=== PATIENT | female | born 1965 | race Caucasian/White ===

== ENCOUNTER 2020-09-18 16:37 | Inpatient (IN) ==
[2020-09-18 17:49] LABS: ABS Basophils 0.1 10^3/ul (0-0.2); ABS Eosinophils 0.6 10^3/ul (0-0.6); ABS Lymphocytes 1.7 10^3/ul (1.0-4.8); ABS Monocytes 0.6 10^3/ul (0-0.8); ABS Neutrophils 7.4 10^3/ul (1.5-7.7); Eosinophil % 5.7 %; Hematocrit 26 % (35-47); Hemoglobin 8.6 g/dL (12.0-16.0); Lymphocyte % 16.8 %; Mean Corpuscular HGB Conc 34 g/dL (31-36); Mean Corpuscular Hemoglobin 33 pg (27-31); Mean Corpuscular Volume 98 fL (80-97); Mean Platelet Volume 7.9 fL (7.4-10.4); Platelet Count 252 10^3/uL (150-450); Red Blood Count 2.63 10^6 /uL (3.70-4.87); Red Cell Distribution Width 15 % (10-15); White Blood Count 10.3 10^3/uL (3.5-10.8)
[2020-09-18 18:06] LABS: Albumin 3.7 g/dL (3.2-5.2); Albumin/Globulin Ratio 1.2 (1-3); Calcium 8.7 mg/dL (8.6-10.3); EGFR African American 73.8 (>60); Globulin 3.2 g/dL (2-4); Phosphorus 3.5 mg/dL (2.5-5.0); Potassium 4.1 mmol/L (3.5-5.0); Total Bilirubin 0.4 mg/dL (0.2-1.0); Total Protein 6.9 g/dL (6.4-8.9)
[2020-09-18] MEDS ORDERED: Ondansetron 4 mg VIAL 2 MG/ML 2 ml VIAL IV PRN (19:35)
[2020-09-18] MEDS ORDERED: Albuterol 2.5mg/3 ml (0.083%) NEB.SOLN INH PRN (19:37)
[2020-09-18] MEDS ORDERED: Benzocaine (DENTAL) 10% TOP.GEL TOPICAL PRN (19:37)
[2020-09-18] MEDS: Nicotine PATCH 14 MG/24 HR PATCH TRANSDERM SCH (20:39)
[2020-09-19] MEDS ORDERED: Haloperidol 5 mg/ml SDV IV/IM 5 MG/ML AMP IV SLOW PU ONE (00:22)
[2020-09-19] MEDS ORDERED: Haloperidol 5 mg/ml SDV IV/IM 5 MG/ML AMP IM ONE (00:28)
[2020-09-19] MEDS ORDERED: Lorazepam PYXIS KEY PRN (00:53)
[2020-09-19] MEDS ORDERED: LORazepam 2 mg VIAL 1 ml IM PRN (00:53)
[2020-09-19] MEDS: Chlorhexidine MOUTHWASH 0.12% 15 ML UDC SWISH SPIT SCH ×3 (09:57→20:08)
[2020-09-19] MEDS: Insulin GLARGINE 100 un/ml 10 ml VIAL SUBCUT SCH ×2 (09:57→20:07)
[2020-09-19] MEDS: Latanoprost 0.005% 2.5 ml BTL LEFT EYE SCH ×2 (09:58→20:08)
[2020-09-19] MEDS ORDERED: Ondansetron ODT 4 mg TAB 4 MG TAB SL PRN (10:43)
[2020-09-19] MEDS: Nicotine PATCH 14 MG/24 HR PATCH TRANSDERM SCH (15:07)
[2020-09-19] MEDS: Enoxaparin 40 MG/0.4 ML SYR SUBCUT SCH (20:07)
[2020-09-20] MEDS: Nicotine PATCH 14 MG/24 HR PATCH TRANSDERM SCH (10:00)
[2020-09-20] MEDS: Chlorhexidine MOUTHWASH 0.12% 15 ML UDC SWISH SPIT SCH ×2 (12:57→23:49)
[2020-09-20] MEDS ORDERED: Lactated Ringers 1000 ml BAG 1,000 ML IV ONE ×2 (18:00→18:48)
[2020-09-20 18:01] LABS: Glucose Confirmatory 448 mg/dL (70-100)
[2020-09-20] MEDS ORDERED: Al Hydrox/Mg Hydrox/Simet LIQ 30 ML UDC PO ONE (21:49)
[2020-09-20] MEDS: Enoxaparin 40 MG/0.4 ML SYR SUBCUT SCH (22:54)
[2020-09-20] MEDS: Insulin GLARGINE 100 un/ml 10 ml VIAL SUBCUT SCH (22:54)
[2020-09-20] MEDS: Latanoprost 0.005% 2.5 ml BTL LEFT EYE SCH (23:50)
[2020-09-21] MEDS ORDERED: Zosyn per Pharmacy NOTE FOLLOW UP SCH (04:00)
[2020-09-21] MEDS ORDERED: Lactated Ringers 1000 ml BAG 1,000 ML IV ONE (04:06)
[2020-09-21] MEDS: Piperacillin/Tazobac ADVAN 3.375 GM in NS 0.9% 100 ml BAG 100 ML IV ONE ×2 (04:07→05:47)
[2020-09-21 05:15] LABS: ABS Basophils 0.1 10^3/ul (0-0.2); ABS Eosinophils 0.7 10^3/ul (0-0.6); ABS Monocytes 0.6 10^3/ul (0-0.8); ABS Neutrophils 6.1 10^3/ul (1.5-7.7); Eosinophil % 7.6 %; Hematocrit 27 % (35-47); Hemoglobin 9.2 g/dL (12.0-16.0); Lymphocyte % 21.4 %; Mean Corpuscular HGB Conc 34 g/dL (31-36); Mean Corpuscular Hemoglobin 33 pg (27-31); Mean Corpuscular Volume 98 fL (80-97); Mean Platelet Volume 7.3 fL (7.4-10.4); Nucleated Red Blood Cells % 0.1; Platelet Count 284 10^3/uL (150-450); Red Blood Count 2.76 10^6 /uL (3.70-4.87); Red Cell Distribution Width 15 % (10-15); White Blood Count 9.5 10^3/uL (3.5-10.8)
[2020-09-21] MEDS ORDERED: Pantoprazole VIAL 40 MG VIAL IV ONE (05:15)
[2020-09-21 05:27] LABS: Activated Partial Thrombo Time 27.2 seconds (26.0-38.0); INR 1.12 (0.86-1.15)
[2020-09-21] MEDS ORDERED: Pantoprazole 80 mg in NS BAG 80 MG/250 ML BAG IV SCH (05:30)
[2020-09-21 05:33] LABS: Albumin 3.3 g/dL (3.2-5.2); Albumin/Globulin Ratio 1.1 (1-3); Calcium 8.7 mg/dL (8.6-10.3); EGFR African American 91.1 (>60); EGFR Non-African American 75.3 (>60); Globulin 3.1 g/dL (2-4); Magnesium 1.5 mg/dL (1.9-2.7); Phosphorus 3.2 mg/dL (2.5-5.0); Potassium 3.9 mmol/L (3.5-5.0); Total Bilirubin 0.3 mg/dL (0.2-1.0); Total Protein 6.4 g/dL (6.4-8.9)
[2020-09-21] MEDS: Morphine 2 MG/ML SYRINGE IV PRN (05:33)
[2020-09-21] MEDS: Dextrose 50% Syringe 50 ml 25 GM/50 ML SYRINGE IV PUSH PRN ×2 (05:56→19:35)
[2020-09-21] MEDS ORDERED: Magnesium Sulfate 2 gm BAG 2 GM/50 ML BAG IVPB ONE (06:00)
[2020-09-21] MEDS ORDERED: D5LR 1000 ml BAG 1,000 ML IV SCH (06:00)
[2020-09-21 06:09] LABS: C Reactive Protein 12.3 mg/L (<8.01)
[2020-09-21 06:29] LABS: Urine Appearance Turbid; Urine Bilirubin Negative (Negative); Urine Blood Negative (Negative); Urine Color Yellow; Urine Glucose 1+(50 mg/dL) (Negative); Urine Ketones Negative (Negative); Urine Nitrite Negative (Negative); Urine Protein Negative (Negative); Urine Specific Gravity 1.011 (1.002-1.030); Urine Urobilinogen Negative (Negative)
[2020-09-21 06:37] LABS: Urine Bacteria 2+ (Absent); Urine Red Blood Cell Trace(0-2/hpf) (Absent); Urine White Blood Cell 2+(11-20/hpf) (Absent); Urine Yeast Present (Absent)
[2020-09-21] MEDS: ZOSYN 3.375 GM Q8H per EXTENDED INFUSION IV SCH ×3 (08:18→23:13)
[2020-09-21] MEDS ORDERED: Iodixanol (CONTRAST) 320 MG/ML 100 ML SDV IV ONE (11:09)
[2020-09-21] MEDS ORDERED: NS 0.9% 100 ml BAG 100 ML ONE (15:44)
[2020-09-21] MEDS ORDERED: Sodium Chloride CONC. 4 MEQ/ML 77 MEQ in D10W 1000 ml BAG 1,000 ML IV SCH (19:00)
[2020-09-21] MEDS: Pantoprazole VIAL 40 MG VIAL IV SCH (20:54)
[2020-09-21] MEDS: Latanoprost 0.005% 2.5 ml BTL LEFT EYE SCH (20:54)
[2020-09-21] MEDS: Enoxaparin 40 MG/0.4 ML SYR SUBCUT SCH (20:55)
[2020-09-22] MEDS ORDERED: Lactated Ringers 1000 ml BAG 500 ML IV ONE (02:06)
[2020-09-22 02:39] LABS: ABS Eosinophils 0.7 10^3/ul (0-0.6); ABS Lymphocytes 1.4 10^3/ul (1.0-4.8); ABS Monocytes 0.5 10^3/ul (0-0.8); ABS Neutrophils 7.4 10^3/ul (1.5-7.7); Hematocrit 26 % (35-47); Hemoglobin 8.6 g/dL (12.0-16.0); Lymphocyte % 14.3 %; Mean Corpuscular HGB Conc 33 g/dL (31-36); Mean Corpuscular Hemoglobin 33 pg (27-31); Mean Corpuscular Volume 98 fL (80-97); Mean Platelet Volume 7.4 fL (7.4-10.4); Platelet Count 265 10^3/uL (150-450); Red Blood Count 2.62 10^6 /uL (3.70-4.87); Red Cell Distribution Width 15 % (10-15)
[2020-09-22 02:54] LABS: Calcium 8.1 mg/dL (8.6-10.3); Magnesium 1.8 mg/dL (1.9-2.7); Potassium 3.8 mmol/L (3.5-5.0)
[2020-09-22 03:00] LABS: EGFR African American 120.1 (>60); EGFR Non-African American 99.2 (>60)
[2020-09-22] MEDS: Dextrose 50% Syringe 50 ml 25 GM/50 ML SYRINGE IV PUSH PRN (03:42)
[2020-09-22] MEDS: Sodium Chloride CONC. 4 MEQ/ML 77 MEQ in D10W 1000 ml BAG 1,000 ML IV SCH ×4 (03:48→15:40)
[2020-09-22] MEDS ORDERED: Propofol 10 mg/ml 100 ML BTL 100 ML IV SCH (08:00)
[2020-09-22] MEDS: ZOSYN 3.375 GM Q8H per EXTENDED INFUSION IV SCH ×2 (09:18→15:57)
[2020-09-22] MEDS: Pantoprazole VIAL 40 MG VIAL IV SCH ×2 (09:18→23:54)
[2020-09-22] MEDS: Morphine 2 MG/ML SYRINGE IV PRN ×3 (09:58→17:12)
[2020-09-22] MEDS: Ondansetron 4 mg VIAL 2 MG/ML 2 ml VIAL IV PRN (12:14)
[2020-09-22] MEDS ORDERED: WATER CENTR SCH (17:00)
[2020-09-22] MEDS ORDERED: TPN CENTR SCH (17:00)
[2020-09-22] MEDS ORDERED: [UNRECOGNIZED DRUG - OTHER] CENTR SCH (17:00)
[2020-09-22] MEDS ORDERED: DEXTROSE CENTR SCH (17:00)
[2020-09-22] MEDS ORDERED: AMINO ACID INFUSION CENTR SCH (17:00)
[2020-09-22] MEDS: Enoxaparin 40 MG/0.4 ML SYR SUBCUT SCH (23:50)
[2020-09-23] MEDS: Dextrose 50% Syringe 50 ml 25 GM/50 ML SYRINGE IV PUSH PRN (00:21)
[2020-09-23] MEDS: ZOSYN 3.375 GM Q8H per EXTENDED INFUSION IV SCH ×3 (00:26→17:36)
[2020-09-23] MEDS: Latanoprost 0.005% 2.5 ml BTL LEFT EYE SCH ×2 (00:32→22:53)
[2020-09-23 06:11] LABS: ABS Eosinophils 0.9 10^3/ul (0-0.6); ABS Monocytes 0.5 10^3/ul (0-0.8); ABS Neutrophils 6.3 10^3/ul (1.5-7.7); Eosinophil % 9.7 %; Hematocrit 25 % (35-47); Hemoglobin 8.4 g/dL (12.0-16.0); Lymphocyte % 20.1 %; Mean Corpuscular HGB Conc 34 g/dL (31-36); Mean Corpuscular Hemoglobin 33 pg (27-31); Mean Corpuscular Volume 97 fL (80-97); Mean Platelet Volume 7.4 fL (7.4-10.4); Platelet Count 264 10^3/uL (150-450); Red Blood Count 2.54 10^6 /uL (3.70-4.87); Red Cell Distribution Width 15 % (10-15); White Blood Count 9.7 10^3/uL (3.5-10.8)
[2020-09-23 06:28] LABS: Albumin 2.8 g/dL (3.2-5.2); Calcium 8.2 mg/dL (8.6-10.3); EGFR African American 104.6 (>60); EGFR Non-African American 86.4 (>60); Globulin 2.9 g/dL (2-4); Magnesium 1.7 mg/dL (1.9-2.7); Phosphorus 3.6 mg/dL (2.5-5.0); Potassium 4.2 mmol/L (3.5-5.0); Total Bilirubin 0.4 mg/dL (0.2-1.0); Total Protein 5.7 g/dL (6.4-8.9)
[2020-09-23] MEDS: Pantoprazole VIAL 40 MG VIAL IV SCH ×2 (08:47→22:51)
[2020-09-23] MEDS ORDERED: TPN CENTRAL STANDARD BASE A CENTR SCH (17:00)
[2020-09-23] MEDS: Enoxaparin 40 MG/0.4 ML SYR SUBCUT SCH (22:51)
[2020-09-24] MEDS: ZOSYN 3.375 GM Q8H per EXTENDED INFUSION IV SCH ×3 (02:32→15:38)
[2020-09-24 07:06] LABS: ABS Basophils 0.1 10^3/ul (0-0.2); ABS Eosinophils 1.1 10^3/ul (0-0.6); ABS Lymphocytes 2.2 10^3/ul (1.0-4.8); ABS Monocytes 0.6 10^3/ul (0-0.8); ABS Neutrophils 6.5 10^3/ul (1.5-7.7); Eosinophil % 10.8 %; Hematocrit 24 % (35-47); Hemoglobin 8.1 g/dL (12.0-16.0); Lymphocyte % 21.3 %; Mean Corpuscular HGB Conc 34 g/dL (31-36); Mean Corpuscular Hemoglobin 33 pg (27-31); Mean Corpuscular Volume 97 fL (80-97); Mean Platelet Volume 7.6 fL (7.4-10.4); Platelet Count 241 10^3/uL (150-450); Red Blood Count 2.44 10^6 /uL (3.70-4.87); Red Cell Distribution Width 15 % (10-15); White Blood Count 10.6 10^3/uL (3.5-10.8)
[2020-09-24 07:19] LABS: Albumin 2.9 g/dL (3.2-5.2); Calcium 8.4 mg/dL (8.6-10.3); EGFR African American 106.3 (>60); EGFR Non-African American 87.9 (>60); Globulin 2.8 g/dL (2-4); Magnesium 1.4 mg/dL (1.9-2.7); Phosphorus 3.7 mg/dL (2.5-5.0); Potassium 4.2 mmol/L (3.5-5.0); Total Bilirubin 0.4 mg/dL (0.2-1.0); Total Protein 5.7 g/dL (6.4-8.9)
[2020-09-24] MEDS: Pantoprazole VIAL 40 MG VIAL IV SCH ×2 (07:55→20:04)
[2020-09-24] MEDS ORDERED: Magnesium Sulfate IV 3 GM in NS 0.9% 100 ml BAG 100 ML IVPB ONE (08:28)
[2020-09-24] MEDS: Morphine 2 MG/ML SYRINGE IV PRN ×4 (09:40→22:36)
[2020-09-24] MEDS: Ondansetron 4 mg VIAL 2 MG/ML 2 ml VIAL IV PRN (15:44)
[2020-09-24] MEDS ORDERED: TPN CENTRAL STANDARD BASE A CENTR SCH (17:00)
[2020-09-24 19:31] LABS: Glucose Confirmatory 773 mg/dL (70-100)
[2020-09-24] MEDS: Enoxaparin 40 MG/0.4 ML SYR SUBCUT SCH (20:04)
[2020-09-24] MEDS: Latanoprost 0.005% 2.5 ml BTL LEFT EYE SCH (20:05)
[2020-09-24] MEDS ORDERED: Dextrose 50% Syringe 50 ml 25 GM/50 ML SYRINGE IV PUSH PRN (20:33)
[2020-09-24] MEDS: Insulin GLARGINE 100 un/ml 10 ml VIAL SUBCUT SCH (20:44)
[2020-09-25] MEDS: ZOSYN 3.375 GM Q8H per EXTENDED INFUSION IV SCH ×3 (00:35→16:20)
[2020-09-25] MEDS: Morphine 2 MG/ML SYRINGE IV PRN ×3 (03:02→19:33)
[2020-09-25 06:05] LABS: ABS Eosinophils 1.4 10^3/ul (0-0.6); ABS Lymphocytes 1.8 10^3/ul (1.0-4.8); ABS Monocytes 0.5 10^3/ul (0-0.8); ABS Neutrophils 6.4 10^3/ul (1.5-7.7); Hematocrit 24 % (35-47); Lymphocyte % 17.9 %; Mean Corpuscular HGB Conc 33 g/dL (31-36); Mean Corpuscular Hemoglobin 32 pg (27-31); Mean Corpuscular Volume 97 fL (80-97); Mean Platelet Volume 7.5 fL (7.4-10.4); Platelet Count 249 10^3/uL (150-450); Red Blood Count 2.49 10^6 /uL (3.70-4.87); Red Cell Distribution Width 14 % (10-15); White Blood Count 10.1 10^3/uL (3.5-10.8)
[2020-09-25 06:23] LABS: Albumin 2.9 g/dL (3.2-5.2); Calcium 8.5 mg/dL (8.6-10.3); EGFR African American 106.3 (>60); EGFR Non-African American 87.9 (>60); Globulin 2.8 g/dL (2-4); Magnesium 1.7 mg/dL (1.9-2.7); Phosphorus 3.3 mg/dL (2.5-5.0); Potassium 4.1 mmol/L (3.5-5.0); Total Bilirubin 0.3 mg/dL (0.2-1.0); Total Protein 5.7 g/dL (6.4-8.9)
[2020-09-25] MEDS: Pantoprazole VIAL 40 MG VIAL IV SCH ×2 (09:16→21:41)
[2020-09-25] MEDS: Ondansetron 4 mg VIAL 2 MG/ML 2 ml VIAL IV PRN (16:30)
[2020-09-25] MEDS ORDERED: [UNRECOGNIZED DRUG - NUTRITION] CENT\\PICC SCH (17:00)
[2020-09-25] MEDS: Insulin GLARGINE 100 un/ml 10 ml VIAL SUBCUT SCH (21:48)
[2020-09-25] MEDS: Latanoprost 0.005% 2.5 ml BTL LEFT EYE SCH (21:49)
[2020-09-25] MEDS: Enoxaparin 40 MG/0.4 ML SYR SUBCUT SCH (21:50)
[2020-09-25 22:18] LABS: Glucose Confirmatory 409 mg/dL (70-100)
[2020-09-25] MEDS ORDERED: Dextrose 50% Syringe 50 ml 25 GM/50 ML SYRINGE IV PUSH PRN (22:26)
[2020-09-26] MEDS: Morphine 2 MG/ML SYRINGE IV PRN ×2 (01:02→08:17)
[2020-09-26 05:42] LABS: ABS Eosinophils 1.1 10^3/ul (0-0.6); ABS Lymphocytes 1.6 10^3/ul (1.0-4.8); ABS Monocytes 0.4 10^3/ul (0-0.8); ABS Neutrophils 3.9 10^3/ul (1.5-7.7); Eosinophil % 15.7 %; Hematocrit 25 % (35-47); Hemoglobin 8.5 g/dL (12.0-16.0); Lymphocyte % 23.1 %; Mean Corpuscular HGB Conc 35 g/dL (31-36); Mean Corpuscular Hemoglobin 33 pg (27-31); Mean Corpuscular Volume 95 fL (80-97); Mean Platelet Volume 7.7 fL (7.4-10.4); Platelet Count 233 10^3/uL (150-450); Red Blood Count 2.57 10^6 /uL (3.70-4.87); Red Cell Distribution Width 14 % (10-15); White Blood Count 6.9 10^3/uL (3.5-10.8)
[2020-09-26 05:58] LABS: Calcium 8.2 mg/dL (8.6-10.3); EGFR African American 104.6 (>60); EGFR Non-African American 86.4 (>60); Magnesium 1.5 mg/dL (1.9-2.7); Phosphorus 3.3 mg/dL (2.5-5.0); Potassium 4.5 mmol/L (3.5-5.0)
[2020-09-26] MEDS: Pantoprazole VIAL 40 MG VIAL IV SCH ×2 (08:16→21:11)
[2020-09-26] MEDS: Ondansetron 4 mg VIAL 2 MG/ML 2 ml VIAL IV PRN ×2 (08:16→15:19)
[2020-09-26] MEDS ORDERED: Magnesium Sulfate IV 3 GM in NS 0.9% 100 ml BAG 100 ML IVPB ONE (10:42)
[2020-09-26] MEDS ORDERED: Metoclopramide 5 MG/ML VIAL (10 mg) IV SLOW PU PRN (11:50)
[2020-09-26] MEDS: Pancrelipase 5,000 units CAP PO SCH ×2 (11:59→17:35)
[2020-09-26 13:35] LABS: % Iron Saturation 33 % (15-55); Iron 61 ug/dL (50-212); Total Iron Binding Capacity 185 mcg/dL (250-450); Transferrin 132 mg/dL (203-362); Unsaturated Iron Binding < 170 ug/dL
[2020-09-26 13:50] LABS: TSH Ultra Thyroid Stim Horm 12.28 mcIU/mL (0.34-5.60)
[2020-09-26 13:59] LABS: Ferritin 160.4 ng/mL (11-307)
[2020-09-26 14:02] LABS: Folate 15.48 ng/mL (5.90-24.80); Vitamin B12 669 pg/mL (180-914)
[2020-09-26 14:37] LABS: T4, Total 11.57 mcg/dL (6.09-12.23)
[2020-09-26 14:47] LABS: Total T3 104 ng/dL (87-178)
[2020-09-26 15:32] LABS: Vitamin D Total 25(OH) < 7.0 ng/mL (20-50)
[2020-09-26] MEDS: [UNRECOGNIZED DRUG - NUTRITION] CENT\\PICC SCH (17:35)
[2020-09-26] MEDS: Insulin GLARGINE 100 un/ml 10 ml VIAL SUBCUT SCH (21:10)
[2020-09-26] MEDS: Latanoprost 0.005% 2.5 ml BTL LEFT EYE SCH (21:11)
[2020-09-26] MEDS: Enoxaparin 40 MG/0.4 ML SYR SUBCUT SCH (21:12)
[2020-09-27 06:05] LABS: ABS Basophils 0.1 10^3/ul (0-0.2); ABS Eosinophils 0.8 10^3/ul (0-0.6); ABS Lymphocytes 1.9 10^3/ul (1.0-4.8); ABS Monocytes 0.3 10^3/ul (0-0.8); ABS Neutrophils 3.3 10^3/ul (1.5-7.7); Eosinophil % 12.4 %; Hematocrit 26 % (35-47); Hemoglobin 8.9 g/dL (12.0-16.0); Lymphocyte % 29.3 %; Mean Corpuscular HGB Conc 35 g/dL (31-36); Mean Corpuscular Hemoglobin 33 pg (27-31); Mean Corpuscular Volume 95 fL (80-97); Mean Platelet Volume 7.8 fL (7.4-10.4); Platelet Count 259 10^3/uL (150-450); Red Cell Distribution Width 14 % (10-15); White Blood Count 6.4 10^3/uL (3.5-10.8)
[2020-09-27 06:11] LABS: INR 1.06 (0.86-1.15)
[2020-09-27 06:25] LABS: Potassium 4.6 mmol/L (3.5-5.0)
[2020-09-27 06:26] LABS: Albumin 3.2 g/dL (3.2-5.2); Albumin/Globulin Ratio 1.1 (1-3); Calcium 8.3 mg/dL (8.6-10.3); EGFR African American 117.9 (>60); EGFR Non-African American 97.4 (>60); Magnesium 1.9 mg/dL (1.9-2.7); Phosphorus 3.9 mg/dL (2.5-5.0); Total Bilirubin 0.3 mg/dL (0.2-1.0); Total Protein 6.2 g/dL (6.4-8.9)
[2020-09-27] MEDS: Pancrelipase 5,000 units CAP PO SCH ×3 (07:39→17:33)
[2020-09-27] MEDS ORDERED: Insulin GLARGINE 100 un/ml 10 ml VIAL SUBCUT ONE (08:16)
[2020-09-27] MEDS: Pantoprazole VIAL 40 MG VIAL IV SCH ×2 (09:08→20:36)
[2020-09-27] MEDS: Cholecalciferol (VIT D3) 1,000 unit TAB PO SCH (09:08)
[2020-09-27] MEDS: [UNRECOGNIZED DRUG - NUTRITION] CENT\\PICC SCH (17:34)
[2020-09-27] MEDS: Enoxaparin 40 MG/0.4 ML SYR SUBCUT SCH (20:36)
[2020-09-27] MEDS: Latanoprost 0.005% 2.5 ml BTL LEFT EYE SCH (20:38)
[2020-09-27] MEDS: Insulin GLARGINE 100 un/ml 10 ml VIAL SUBCUT SCH (22:01)
[2020-09-28 06:31] LABS: ABS Basophils 0.1 10^3/ul (0-0.2); ABS Eosinophils 0.8 10^3/ul (0-0.6); ABS Lymphocytes 1.8 10^3/ul (1.0-4.8); ABS Monocytes 0.4 10^3/ul (0-0.8); ABS Neutrophils 2.9 10^3/ul (1.5-7.7); Hematocrit 24 % (35-47); Hemoglobin 8.5 g/dL (12.0-16.0); Lymphocyte % 30.2 %; Mean Corpuscular HGB Conc 35 g/dL (31-36); Mean Corpuscular Hemoglobin 33 pg (27-31); Mean Corpuscular Volume 96 fL (80-97); Platelet Count 264 10^3/uL (150-450); Red Blood Count 2.55 10^6 /uL (3.70-4.87); Red Cell Distribution Width 15 % (10-15)
[2020-09-28 06:47] LABS: Calcium 8.2 mg/dL (8.6-10.3); EGFR African American 120.1 (>60); EGFR Non-African American 99.2 (>60); Globulin 2.9 g/dL (2-4); Magnesium 1.7 mg/dL (1.9-2.7); Potassium 4.5 mmol/L (3.5-5.0); Total Bilirubin 0.3 mg/dL (0.2-1.0); Total Protein 5.9 g/dL (6.4-8.9)
[2020-09-28] MEDS ORDERED: Magnesium Sulfate 2 gm BAG 2 GM/50 ML BAG IVPB ONE (08:03)
[2020-09-28] MEDS: Pantoprazole VIAL 40 MG VIAL IV SCH ×2 (08:26→22:25)
[2020-09-28] MEDS: Pancrelipase 5,000 units CAP PO SCH ×3 (08:26→16:54)
[2020-09-28] MEDS: Cholecalciferol (VIT D3) 1,000 unit TAB PO SCH (08:27)
[2020-09-28] MEDS: [UNRECOGNIZED DRUG - NUTRITION] CENT\\PICC SCH (17:24)
[2020-09-28] MEDS: Enoxaparin 40 MG/0.4 ML SYR SUBCUT SCH (22:25)
[2020-09-28] MEDS: Insulin GLARGINE 100 un/ml 10 ml VIAL SUBCUT SCH (22:25)
[2020-09-28] MEDS: Latanoprost 0.005% 2.5 ml BTL LEFT EYE SCH (22:28)
[2020-09-29] MEDS: Pantoprazole VIAL 40 MG VIAL IV SCH ×2 (07:56→21:38)
[2020-09-29 08:19] LABS: Albumin 3.1 g/dL (3.2-5.2); Albumin/Globulin Ratio 1.1 (1-3); Calcium 8.5 mg/dL (8.6-10.3); EGFR African American 88.6 (>60); EGFR Non-African American 73.2 (>60); Globulin 2.9 g/dL (2-4); Phosphorus 4.7 mg/dL (2.5-5.0); Potassium 4.8 mmol/L (3.5-5.0); Total Bilirubin 0.3 mg/dL (0.2-1.0)
[2020-09-29] MEDS: Cholecalciferol (VIT D3) 1,000 unit TAB PO SCH (08:46)
[2020-09-29] MEDS: Pancrelipase 5,000 units CAP PO SCH ×3 (08:46→17:07)
[2020-09-29] MEDS ORDERED: Morphine 2 MG/ML SYRINGE IV PRN (13:54)
[2020-09-29 19:15] LABS: Potassium 4.2 mmol/L (3.5-5.0)
[2020-09-29 19:16] LABS: Calcium 8.9 mg/dL (8.6-10.3); EGFR African American 95.3 (>60); EGFR Non-African American 78.7 (>60); Magnesium 1.9 mg/dL (1.9-2.7)
[2020-09-29] MEDS: Latanoprost 0.005% 2.5 ml BTL LEFT EYE SCH (21:35)
[2020-09-29] MEDS: Enoxaparin 40 MG/0.4 ML SYR SUBCUT SCH (21:38)
[2020-09-29] MEDS: Insulin GLARGINE 100 un/ml 10 ml VIAL SUBCUT SCH ×2 (21:56→23:11)
[2020-09-30 05:53] LABS: ABS Basophils 0.1 10^3/ul (0-0.2); ABS Eosinophils 0.3 10^3/ul (0-0.6); ABS Lymphocytes 1.7 10^3/ul (1.0-4.8); ABS Monocytes 0.5 10^3/ul (0-0.8); ABS Neutrophils 3.6 10^3/ul (1.5-7.7); Eosinophil % 5.6 %; Hematocrit 24 % (35-47); Hemoglobin 8.3 g/dL (12.0-16.0); Lymphocyte % 27.2 %; Mean Corpuscular HGB Conc 34 g/dL (31-36); Mean Corpuscular Hemoglobin 33 pg (27-31); Mean Corpuscular Volume 97 fL (80-97); Mean Platelet Volume 8.1 fL (7.4-10.4); Nucleated Red Blood Cells % 0.1; Platelet Count 282 10^3/uL (150-450); Red Blood Count 2.52 10^6 /uL (3.70-4.87); Red Cell Distribution Width 15 % (10-15); White Blood Count 6.1 10^3/uL (3.5-10.8)
[2020-09-30] MEDS: Pancrelipase 5,000 units CAP PO SCH ×3 (09:14→17:25)
[2020-09-30] MEDS: Cholecalciferol (VIT D3) 1,000 unit TAB PO SCH (09:14)
[2020-09-30] MEDS: Pantoprazole VIAL 40 MG VIAL IV SCH ×2 (09:14→21:58)
[2020-09-30] MEDS: Insulin GLARGINE 100 un/ml 10 ml VIAL SUBCUT SCH (21:51)
[2020-09-30] MEDS: Enoxaparin 40 MG/0.4 ML SYR SUBCUT SCH (21:51)
[2020-09-30] MEDS: Latanoprost 0.005% 2.5 ml BTL LEFT EYE SCH (21:59)
[2020-10-01] MEDS: Pancrelipase 5,000 units CAP PO SCH ×3 (07:57→17:32)
[2020-10-01 08:09] LABS: Vitamin E 3.8 mg/L (5.5 - 17.0)
[2020-10-01] MEDS: Cholecalciferol (VIT D3) 1,000 unit TAB PO SCH (08:45)
[2020-10-01] MEDS: Pantoprazole VIAL 40 MG VIAL IV SCH ×2 (09:45→23:15)
[2020-10-01 22:09] LABS: Glucose Confirmatory 405 mg/dL (70-100)
[2020-10-01] MEDS: Insulin GLARGINE 100 un/ml 10 ml VIAL SUBCUT SCH (23:15)
[2020-10-01] MEDS: Latanoprost 0.005% 2.5 ml BTL LEFT EYE SCH (23:15)
[2020-10-01] MEDS: Enoxaparin 40 MG/0.4 ML SYR SUBCUT SCH (23:15)
[2020-10-02 02:01] LABS: Vitamin A, S 28.3 mcg/dL (32.5-78.0)
[2020-10-02 06:26] LABS: ABS Basophils 0.1 10^3/ul (0-0.2); ABS Eosinophils 0.3 10^3/ul (0-0.6); ABS Lymphocytes 1.9 10^3/ul (1.0-4.8); ABS Monocytes 0.6 10^3/ul (0-0.8); ABS Neutrophils 3.4 10^3/ul (1.5-7.7); Eosinophil % 4.6 %; Hematocrit 24 % (35-47); Lymphocyte % 30.7 %; Mean Corpuscular HGB Conc 34 g/dL (31-36); Mean Corpuscular Hemoglobin 33 pg (27-31); Mean Corpuscular Volume 98 fL (80-97); Mean Platelet Volume 7.9 fL (7.4-10.4); Platelet Count 295 10^3/uL (150-450); Red Blood Count 2.44 10^6 /uL (3.70-4.87); Red Cell Distribution Width 15 % (10-15); White Blood Count 6.3 10^3/uL (3.5-10.8)
[2020-10-02 06:42] LABS: Calcium 8.3 mg/dL (8.6-10.3); EGFR African American 92.5 (>60); EGFR Non-African American 76.4 (>60); Magnesium 1.4 mg/dL (1.9-2.7); Potassium 4.3 mmol/L (3.5-5.0)
[2020-10-02] MEDS: Pancrelipase 5,000 units CAP PO SCH ×3 (07:45→17:54)
[2020-10-02] MEDS: Cholecalciferol (VIT D3) 1,000 unit TAB PO SCH (09:09)
[2020-10-02] MEDS: Pantoprazole VIAL 40 MG VIAL IV SCH ×2 (09:10→22:37)
[2020-10-02] MEDS ORDERED: Magnesium Sulf 4 GM/100 ML IV 4,000 MG/100 ML BAG IVPB ONE (12:41)
[2020-10-02] MEDS: Latanoprost 0.005% 2.5 ml BTL LEFT EYE SCH (22:37)
[2020-10-02] MEDS: Insulin GLARGINE 100 un/ml 10 ml VIAL SUBCUT SCH (22:37)
[2020-10-02] MEDS: Enoxaparin 40 MG/0.4 ML SYR SUBCUT SCH (22:38)
[2020-10-03] MEDS: Cholecalciferol (VIT D3) 1,000 unit TAB PO SCH (08:51)
[2020-10-03] MEDS: Pantoprazole VIAL 40 MG VIAL IV SCH ×2 (08:53→22:52)
[2020-10-03] MEDS: Pancrelipase 5,000 units CAP PO SCH ×3 (08:53→17:37)
[2020-10-03] MEDS: Enoxaparin 40 MG/0.4 ML SYR SUBCUT SCH (22:49)
[2020-10-03] MEDS: Latanoprost 0.005% 2.5 ml BTL LEFT EYE SCH (22:53)
[2020-10-03] MEDS: Insulin GLARGINE 100 un/ml 10 ml VIAL SUBCUT SCH (23:22)
[2020-10-04 06:58] LABS: Calcium 8.7 mg/dL (8.6-10.3); EGFR African American 88.6 (>60); EGFR Non-African American 73.2 (>60); Magnesium 1.6 mg/dL (1.9-2.7); Potassium 4.4 mmol/L (3.5-5.0)
[2020-10-04] MEDS: Pantoprazole VIAL 40 MG VIAL IV SCH ×2 (08:35→21:44)
[2020-10-04] MEDS: Ondansetron 4 mg VIAL 2 MG/ML 2 ml VIAL IV PRN (08:35)
[2020-10-04] MEDS: Cholestyramine Resin 4 GM POWDER PO SCH (08:59)
[2020-10-04] MEDS: Pancrelipase 5,000 units CAP PO SCH ×3 (09:03→17:24)
[2020-10-04] MEDS: Cholecalciferol (VIT D3) 1,000 unit TAB PO SCH (09:44)
[2020-10-04] MEDS ORDERED: Magnesium Sulfate 2 gm BAG 2 GM/50 ML BAG IVPB ONE (10:20)
[2020-10-04] MEDS: Insulin GLARGINE 100 un/ml 10 ml VIAL SUBCUT SCH (21:42)
[2020-10-04] MEDS: Latanoprost 0.005% 2.5 ml BTL LEFT EYE SCH (21:42)
[2020-10-04] MEDS: Enoxaparin 40 MG/0.4 ML SYR SUBCUT SCH (21:45)
[2020-10-05 07:14] LABS: Albumin 3.4 g/dL (3.2-5.2); Albumin/Globulin Ratio 1.1 (1-3); EGFR African American 80.6 (>60); EGFR Non-African American 66.6 (>60); Magnesium 1.6 mg/dL (1.9-2.7); Potassium 4.2 mmol/L (3.5-5.0); Total Bilirubin 0.3 mg/dL (0.2-1.0); Total Protein 6.4 g/dL (6.4-8.9)
[2020-10-05] MEDS: Pancrelipase 5,000 units CAP PO SCH ×3 (08:13→16:58)
[2020-10-05] MEDS: Cholecalciferol (VIT D3) 1,000 unit TAB PO SCH (08:14)
[2020-10-05] MEDS: Cholestyramine Resin 4 GM POWDER PO SCH (08:14)
[2020-10-05] MEDS: Pantoprazole VIAL 40 MG VIAL IV SCH ×2 (08:14→20:30)
[2020-10-05] MEDS ORDERED: Magnesium Sulfate 2 gm BAG 2 GM/50 ML BAG IVPB ONE (08:28)
[2020-10-05] MEDS: Ondansetron 4 mg VIAL 2 MG/ML 2 ml VIAL IV PRN (18:14)
[2020-10-05] MEDS: Enoxaparin 40 MG/0.4 ML SYR SUBCUT SCH ×2 (20:30→21:53)
[2020-10-05] MEDS: Insulin GLARGINE 100 un/ml 10 ml VIAL SUBCUT SCH (20:31)
[2020-10-05] MEDS: Latanoprost 0.005% 2.5 ml BTL LEFT EYE SCH (20:35)
[2020-10-06] MEDS: Pancrelipase 5,000 units CAP PO SCH ×3 (10:19→18:43)
[2020-10-06] MEDS: Pantoprazole VIAL 40 MG VIAL IV SCH ×2 (10:35→20:27)
[2020-10-06] MEDS: Ondansetron 4 mg VIAL 2 MG/ML 2 ml VIAL IV PRN (10:35)
[2020-10-06] MEDS: Cholecalciferol (VIT D3) 1,000 unit TAB PO SCH ×2 (10:45→12:31)
[2020-10-06] MEDS: Cholestyramine Resin 4 GM POWDER PO SCH (12:32)
[2020-10-06] MEDS ORDERED: Lactated Ringers 1000 ml BAG 1,000 ML IV ONE ×2 (18:30→23:14)
[2020-10-06 18:44] LABS: ABS Basophils 0.1 10^3/ul (0-0.2); ABS Eosinophils 0.1 10^3/ul (0-0.6); ABS Lymphocytes 2.3 10^3/ul (1.0-4.8); ABS Monocytes 0.4 10^3/ul (0-0.8); ABS Neutrophils 3.9 10^3/ul (1.5-7.7); Eosinophil % 1.4 %; Hematocrit 30 % (35-47); Hemoglobin 9.9 g/dL (12.0-16.0); Lymphocyte % 33.8 %; Mean Corpuscular HGB Conc 34 g/dL (31-36); Mean Corpuscular Hemoglobin 33 pg (27-31); Mean Corpuscular Volume 98 fL (80-97); Mean Platelet Volume 7.2 fL (7.4-10.4); Nucleated Red Blood Cells % 0.1; Platelet Count 362 10^3/uL (150-450); Red Blood Count 3.03 10^6 /uL (3.70-4.87); Red Cell Distribution Width 16 % (10-15); White Blood Count 6.7 10^3/uL (3.5-10.8)
[2020-10-06 19:05] LABS: Albumin 3.6 g/dL (3.2-5.2); Albumin/Globulin Ratio 1.2 (1-3); Calcium 8.8 mg/dL (8.6-10.3); EGFR African American 63.1 (>60); EGFR Non-African American 52.2 (>60); Magnesium 1.7 mg/dL (1.9-2.7); Phosphorus 5.7 mg/dL (2.5-5.0); Potassium 4.1 mmol/L (3.5-5.0); Total Bilirubin 0.4 mg/dL (0.2-1.0); Total Protein 6.6 g/dL (6.4-8.9)
[2020-10-06] MEDS ORDERED: Magnesium Sulfate 2 gm BAG 2 GM/50 ML BAG IVPB ONE (19:56)
[2020-10-06] MEDS: Enoxaparin 40 MG/0.4 ML SYR SUBCUT SCH (20:22)
[2020-10-06] MEDS: Latanoprost 0.005% 2.5 ml BTL LEFT EYE SCH (20:27)
[2020-10-06] MEDS: Insulin GLARGINE 100 un/ml 10 ml VIAL SUBCUT SCH (21:33)
[2020-10-07] MEDS: Ondansetron 4 mg VIAL 2 MG/ML 2 ml VIAL IV PRN (04:32)
[2020-10-07] MEDS: Pantoprazole VIAL 40 MG VIAL IV SCH ×2 (08:11→20:02)
[2020-10-07] MEDS: Cholestyramine Resin 4 GM POWDER PO SCH ×2 (08:12→11:10)
[2020-10-07] MEDS: Pancrelipase 5,000 units CAP PO SCH ×3 (08:12→18:10)
[2020-10-07] MEDS: Cholecalciferol (VIT D3) 1,000 unit TAB PO SCH (08:12)
[2020-10-07 09:22] LABS: Calcium 8.2 mg/dL (8.6-10.3); EGFR African American 80.6 (>60); EGFR Non-African American 66.6 (>60); Magnesium 1.8 mg/dL (1.9-2.7); Potassium 3.7 mmol/L (3.5-5.0)
[2020-10-07] MEDS ORDERED: Magnesium Sulfate IV 1GM/100ML 1 GM/100 ML BAG IV ONE (14:05)
[2020-10-07] MEDS: Enoxaparin 40 MG/0.4 ML SYR SUBCUT SCH (20:05)
[2020-10-07] MEDS: Insulin GLARGINE 100 un/ml 10 ml VIAL SUBCUT SCH (21:35)
[2020-10-07] MEDS: Latanoprost 0.005% 2.5 ml BTL LEFT EYE SCH (21:41)
[2020-10-08] MEDS: Pancrelipase 5,000 units CAP PO SCH ×3 (08:13→17:02)
[2020-10-08] MEDS: Pantoprazole VIAL 40 MG VIAL IV SCH (09:10)
[2020-10-08] MEDS: Cholecalciferol (VIT D3) 1,000 unit TAB PO SCH (09:13)
[2020-10-08] MEDS: Cholestyramine Resin 4 GM POWDER PO SCH (09:15)
[2020-10-08] MEDS: Latanoprost 0.005% 2.5 ml BTL LEFT EYE SCH (20:11)
[2020-10-08] MEDS: Diphenoxylat/Atrop 2.5-0.025mg TAB PO SCH (20:12)
[2020-10-08] MEDS: Enoxaparin 40 MG/0.4 ML SYR SUBCUT SCH (20:17)
[2020-10-08] MEDS: Insulin GLARGINE 100 un/ml 10 ml VIAL SUBCUT SCH (20:30)
[2020-10-09] MEDS: Ondansetron 4 mg VIAL 2 MG/ML 2 ml VIAL IV PRN (02:20)
[2020-10-09] MEDS: Multivitamins/Minerals TAB PO SCH (07:59)
[2020-10-09] MEDS: Pancrelipase 5,000 units CAP PO SCH ×3 (08:01→17:34)
[2020-10-09] MEDS: Cholecalciferol (VIT D3) 1,000 unit TAB PO SCH (08:02)
[2020-10-09] MEDS: Diphenoxylat/Atrop 2.5-0.025mg TAB PO SCH ×2 (08:02→20:09)
[2020-10-09] MEDS: Cholestyramine Resin 4 GM POWDER PO SCH (08:15)
[2020-10-09] MEDS: Insulin GLARGINE 100 un/ml 10 ml VIAL SUBCUT SCH (20:10)
[2020-10-09] MEDS: Latanoprost 0.005% 2.5 ml BTL LEFT EYE SCH (20:10)
[2020-10-09] MEDS: Enoxaparin 40 MG/0.4 ML SYR SUBCUT SCH (20:10)
[2020-10-10] MEDS: Diphenoxylat/Atrop 2.5-0.025mg TAB PO SCH ×2 (08:03→20:12)
[2020-10-10] MEDS: Ondansetron 4 mg VIAL 2 MG/ML 2 ml VIAL IV PRN (08:06)
[2020-10-10] MEDS: Cholecalciferol (VIT D3) 1,000 unit TAB PO SCH (08:19)
[2020-10-10] MEDS: Pancrelipase 5,000 units CAP PO SCH ×3 (08:19→17:52)
[2020-10-10] MEDS: Cholestyramine Resin 4 GM POWDER PO SCH (08:20)
[2020-10-10] MEDS: Multivitamins/Minerals TAB PO SCH (08:20)
[2020-10-10] MEDS: Ondansetron ODT 4 mg TAB 4 MG TAB SL PRN (12:09)
[2020-10-10] MEDS: Latanoprost 0.005% 2.5 ml BTL LEFT EYE SCH (20:14)
[2020-10-10] MEDS: Enoxaparin 40 MG/0.4 ML SYR SUBCUT SCH (20:17)
[2020-10-10] MEDS: Insulin GLARGINE 100 un/ml 10 ml VIAL SUBCUT SCH (20:25)
[2020-10-11] MEDS: Diphenoxylat/Atrop 2.5-0.025mg TAB PO SCH ×2 (08:58→20:34)
[2020-10-11] MEDS: Cholestyramine Resin 4 GM POWDER PO SCH (08:59)
[2020-10-11] MEDS: Multivitamins/Minerals TAB PO SCH (08:59)
[2020-10-11] MEDS: Cholecalciferol (VIT D3) 1,000 unit TAB PO SCH (08:59)
[2020-10-11] MEDS: Pancrelipase 5,000 units CAP PO SCH ×3 (08:59→18:03)
[2020-10-11] MEDS: Latanoprost 0.005% 2.5 ml BTL LEFT EYE SCH (20:32)
[2020-10-11] MEDS: Enoxaparin 40 MG/0.4 ML SYR SUBCUT SCH (20:38)
[2020-10-11] MEDS: Insulin GLARGINE 100 un/ml 10 ml VIAL SUBCUT SCH (20:47)
[2020-10-12] MEDS: Pancrelipase 5,000 units CAP PO SCH ×3 (08:32→17:42)
[2020-10-12] MEDS: Cholecalciferol (VIT D3) 1,000 unit TAB PO SCH (08:34)
[2020-10-12] MEDS: Diphenoxylat/Atrop 2.5-0.025mg TAB PO SCH ×2 (08:35→22:31)
[2020-10-12] MEDS: Multivitamins/Minerals TAB PO SCH (08:35)
[2020-10-12] MEDS: Cholestyramine Resin 4 GM POWDER PO SCH (08:36)
[2020-10-12] MEDS: Insulin GLARGINE 100 un/ml 10 ml VIAL SUBCUT SCH (22:27)
[2020-10-12] MEDS: Enoxaparin 40 MG/0.4 ML SYR SUBCUT SCH (22:28)
[2020-10-12] MEDS: Latanoprost 0.005% 2.5 ml BTL LEFT EYE SCH (22:35)
[2020-10-13] MEDS: Pancrelipase 5,000 units CAP PO SCH ×3 (08:18→16:32)
[2020-10-13] MEDS: Cholestyramine Resin 4 GM POWDER PO SCH (08:18)
[2020-10-13] MEDS: Multivitamins/Minerals TAB PO SCH (08:19)
[2020-10-13] MEDS: Cholecalciferol (VIT D3) 1,000 unit TAB PO SCH (08:19)
[2020-10-13] MEDS: Diphenoxylat/Atrop 2.5-0.025mg TAB PO SCH ×2 (08:19→21:44)
[2020-10-13] MEDS: Ondansetron ODT 4 mg TAB 4 MG TAB SL PRN (18:40)
[2020-10-13] MEDS ORDERED: Glucose ORAL 15 GM TUBE PO ONE (19:55)
[2020-10-13] MEDS: Insulin GLARGINE 100 un/ml 10 ml VIAL SUBCUT SCH (21:44)
[2020-10-13] MEDS: Latanoprost 0.005% 2.5 ml BTL LEFT EYE SCH (21:44)
[2020-10-13] MEDS: Enoxaparin 40 MG/0.4 ML SYR SUBCUT SCH (21:44)
[2020-10-14] MEDS: Cholecalciferol (VIT D3) 1,000 unit TAB PO SCH (08:10)
[2020-10-14] MEDS: Multivitamins/Minerals TAB PO SCH (08:57)
[2020-10-14] MEDS: Cholestyramine Resin 4 GM POWDER PO SCH (08:57)
[2020-10-14] MEDS: Diphenoxylat/Atrop 2.5-0.025mg TAB PO SCH ×2 (08:57→20:31)
[2020-10-14] MEDS: Pancrelipase 5,000 units CAP PO SCH ×3 (08:57→16:40)
[2020-10-14] MEDS: Enoxaparin 40 MG/0.4 ML SYR SUBCUT SCH (20:32)
[2020-10-14] MEDS: Insulin GLARGINE 100 un/ml 10 ml VIAL SUBCUT SCH (20:35)
[2020-10-14] MEDS: Latanoprost 0.005% 2.5 ml BTL LEFT EYE SCH (20:58)
[2020-10-15] MEDS: Diphenoxylat/Atrop 2.5-0.025mg TAB PO SCH ×2 (09:29→21:17)
[2020-10-15] MEDS: Pancrelipase 5,000 units CAP PO SCH ×3 (09:29→17:08)
[2020-10-15] MEDS: Cholecalciferol (VIT D3) 1,000 unit TAB PO SCH (09:29)
[2020-10-15] MEDS: Multivitamins/Minerals TAB PO SCH (09:30)
[2020-10-15] MEDS: Cholestyramine Resin 4 GM POWDER PO SCH (09:30)
[2020-10-15] MEDS: Latanoprost 0.005% 2.5 ml BTL LEFT EYE SCH (21:17)
[2020-10-15] MEDS: Insulin GLARGINE 100 un/ml 10 ml VIAL SUBCUT SCH (21:18)
[2020-10-15] MEDS: Enoxaparin 40 MG/0.4 ML SYR SUBCUT SCH ×2 (21:18→21:22)
[2020-10-16] MEDS: Multivitamins/Minerals TAB PO SCH (08:07)
[2020-10-16] MEDS: Cholecalciferol (VIT D3) 1,000 unit TAB PO SCH (08:07)
[2020-10-16] MEDS: Pancrelipase 5,000 units CAP PO SCH ×3 (08:07→16:11)
[2020-10-16] MEDS: Cholestyramine Resin 4 GM POWDER PO SCH ×2 (08:07→08:15)
[2020-10-16] MEDS: Diphenoxylat/Atrop 2.5-0.025mg TAB PO SCH ×2 (08:07→20:47)
[2020-10-16 20:10] LABS: Glucose Confirmatory 528 mg/dL (70-100)
[2020-10-16] MEDS ORDERED: Dextrose 50% Syringe 50 ml 25 GM/50 ML SYRINGE IV PUSH PRN (20:22)
[2020-10-16] MEDS: Insulin GLARGINE 100 un/ml 10 ml VIAL SUBCUT SCH (20:48)
[2020-10-16] MEDS: Latanoprost 0.005% 2.5 ml BTL LEFT EYE SCH (20:49)
[2020-10-16] MEDS: Enoxaparin 40 MG/0.4 ML SYR SUBCUT SCH (20:50)
[2020-10-17] MEDS: Multivitamins/Minerals TAB PO SCH ×2 (08:56→12:54)
[2020-10-17] MEDS: Cholestyramine Resin 4 GM POWDER PO SCH ×2 (08:56→12:54)
[2020-10-17] MEDS: Diphenoxylat/Atrop 2.5-0.025mg TAB PO SCH ×3 (08:57→19:57)
[2020-10-17] MEDS: Cholecalciferol (VIT D3) 1,000 unit TAB PO SCH ×2 (08:57→12:54)
[2020-10-17] MEDS: Pancrelipase 5,000 units CAP PO SCH ×4 (08:57→17:08)
[2020-10-17] MEDS: Ondansetron ODT 4 mg TAB 4 MG TAB SL PRN (17:08)
[2020-10-17] MEDS: Enoxaparin 40 MG/0.4 ML SYR SUBCUT SCH (19:58)
[2020-10-17] MEDS: Latanoprost 0.005% 2.5 ml BTL LEFT EYE SCH (19:58)
[2020-10-17] MEDS ORDERED: Lactated Ringers 500 ml BAG 500 ML IV ONE ×2 (20:53→22:30)
[2020-10-17] MEDS: Insulin GLARGINE 100 un/ml 10 ml VIAL SUBCUT SCH (21:30)
[2020-10-17 22:09] LABS: ABS Monocytes 0.5 10^3/ul (0-0.8); ABS Neutrophils 6.7 10^3/ul (1.5-7.7); Eosinophil % 0.5 %; Hematocrit 38 % (35-47); Hemoglobin 12.4 g/dL (12.0-16.0); Lymphocyte % 21.3 %; Mean Corpuscular HGB Conc 33 g/dL (31-36); Mean Corpuscular Hemoglobin 32 pg (27-31); Mean Corpuscular Volume 98 fL (80-97); Mean Platelet Volume 7.8 fL (7.4-10.4); Platelet Count 269 10^3/uL (150-450); Red Blood Count 3.82 10^6 /uL (3.70-4.87); Red Cell Distribution Width 16 % (10-15); White Blood Count 9.2 10^3/uL (3.5-10.8)
[2020-10-17 22:27] LABS: Albumin/Globulin Ratio 1.2 (1-3); Calcium 9.2 mg/dL (8.6-10.3); EGFR African American 44.5 (>60); EGFR Non-African American 36.7 (>60); Globulin 3.3 g/dL (2-4); Potassium 3.6 mmol/L (3.5-5.0); Total Bilirubin 0.3 mg/dL (0.2-1.0); Total Protein 7.3 g/dL (6.4-8.9)
[2020-10-17] MEDS ORDERED: Calcium Carb (TUMS) 500 mg CHEW TAB PO ONE (22:30)
[2020-10-17] MEDS ORDERED: Ondansetron 4 mg VIAL 2 MG/ML 2 ml VIAL IV PRN (23:24)
[2020-10-18] MEDS ORDERED: EPINEPHrine SYR 0.1MG/ML 10 ml SYRINGE ONE (01:20)
[2020-10-18] MEDS ORDERED: Sodium Bicarbonate 8.4% SYR 50 ml SYRINGE ONE (01:20)
[2020-10-18] MEDS ORDERED: Dextrose 50% Syringe 50 ml 25 GM/50 ML SYRINGE ONE (01:23)
[2020-10-18 01:26] LABS: Urine Appearance Turbid; Urine Bilirubin Negative (Negative); Urine Blood 1+ (Negative); Urine Color Yellow; Urine Glucose Negative (Negative); Urine Ketones Negative (Negative); Urine Nitrite Negative (Negative); Urine Protein 1+(30 mg/dL) (Negative); Urine Urobilinogen Negative (Negative)
[2020-10-18 01:43] LABS: Urine Bacteria 1+ (Absent); Urine Red Blood Cell 3+(>10/hpf) (Absent); Urine White Blood Cell 3+(>20/hpf) (Absent); Urine Yeast Present (Absent)
[2020-10-18 01:45] VITALS: BP 80/50
== END 2020-10-18 01:32 | disposition expired | DRG 254 ==
LOC: ED 16:37 → EDHOLD 19:35 → SUATTDRO 19:35 → MEDTELE 09-20 10:31 → ICU 09-21 05:11 → SSU 09-22 20:07 → MEDTELE 10-13 00:10
PROVIDERS: ADMIT Student in an Organized Health Care Education/Training Program; ATTEND Hospitalist